=== PATIENT | female | born 1995 | race Hispanic/Latino ===

== ENCOUNTER 2017-09-06 15:02 | Outpatient (CLI) | payer OTHER | END 2017-09-06 15:03 | disposition home or self-care (01) | LOC: DTY/OP 15:02 | PROVIDERS: ATTEND Obstetrics & Gynecology | DX: O24.419 Gestational diabetes mellitus in pregnancy, unspecified control (principal); Z71.3 Dietary counseling and surveillance | CPT/HCPCS: 97802 ==